=== PATIENT | male | born 1975 | race Caucasian/White ===

== ENCOUNTER → 2021-03-26 10:21 | Outpatient (BNVA) | payer OTHER, SELFPAY | PROVIDERS: Visit Provider Surgery | DX: Z20.822 Contact with and (suspected) exposure to COVID-19 (principal); K92.1 Melena | CPT/HCPCS: 87635 ==

== ENCOUNTER 2021-03-29 07:37 | Day surgery (SDC) | payer OTHER, SELFPAY ==
--- NOTE | 2021-03-29 08:20 | ANES.PREANE2 ---
Pre-Anesthetic Assessment Pre-Anesthetic Assessment: Height/Weight: Height 1.78 m Weight 99.79 kg Preop Diagnosis: Bleeding per rectum Proposed Procedure: Operation Date: 03/29/21 09:00 Proposed Procedures p EGD/Colon 84961 D50.9(Not Applicable) - Chris Mane MD s Colonoscopy 77901 K92.1(Not Applicable) - Chris Mane MD Was Beta Crissy taken within 24 hours: N/A Was Clonidine taken within 24 hours: N/A Social: Social History: Tobacco and No alcohol Exam: Pre-Anes Outpt Exam: alert, oriented x 3, clear to auscultation bilaterally and regular rate & rhythm Airway: Submandibular: WNL Cervical ROM: WNL Dentition: Full CV/HEM: CV/HEM: Anemia Metabolic: Metabolic: Hyperlipidemia Anesthetic Plan: ASA status: 2 Anesthesia: MAC Risk of > 500 ml blood loss (7ml/kg in children): No PFSH Anesthesia PFSH: Family History Denies family history of Diabetes CAD (coronary artery disease) Dementia Chronic kidney disease (CKD) Lung disease Cancer Stroke Social History Smoking and tobacco status: current some day smoker Alcohol intake: current Alcohol intake frequency: 3 or more drinks per day Lives independently: Yes Household members: spouse and children Marital status: Data Anesthesia Cardiac Studies: No Data to Display
[2021-03-29 08:30] VITALS: BP 149/89; PULSE 80; RESP 18; TEMP 36.6; O2SAT 99
[2021-03-29] MEDS: sodium chloride 0.9% 1,000 ML 30 ML IV (08:45)
--- NOTE | 2021-03-29 08:56 | W.PM.OPSUD ---
Surgery/Procedure H&P Update DATE OF PROCEDURE: March 29, 2021 DATE H&P PERFORMED: 03/22/21 H&P UPDATE INFORMATION: I have reviewed H&P completed within last 30 days, I have examined patient prior to procedure and No changes to prior documentation PREOP DIAGNOSIS: Bleeding per rectum PRIMARY INDICATION FOR PROCEDURE: The same PLANNED PROCEDURE: Operation Date: 03/29/21 09:00 Proposed Procedures p EGD/Colon 55397 D50.9(Not Applicable) - Chris Mane MD s Colonoscopy 97345 K92.1(Not Applicable) - Chris Mane MD
[2021-03-29 09:31] VITALS: BP 120/99; PULSE 85; RESP 18; TEMP 36.3; O2SAT 98
[2021-03-29 09:45] VITALS: BP 148/91; PULSE 86; RESP 16; O2SAT 97
--- NOTE | 2021-03-29 14:53 | ANE.PACU2 ---
Inpatient post-anesthesia follow up: Airway intact: Yes Vital signs: Temperature 97.3 F Pulse Rate 86 Respiratory Rate 16 Blood Pressure 148/91 Pulse Oximetry 97 Oxygen Delivery Me thod Room Air Oxygen Flow Rate 3 Fraction of Inspir ed Oxygen Hydration adequate: Yes Nausea and vomiting: No Pain level: 1 Mental status: Baseline
== END 2021-03-29 10:23 | disposition home or self-care (01) ==
PROVIDERS: Visit Provider Surgery
PROC: 0DJ08ZZ Inspection of Upper Intestinal Tract, Via Natural or Artificial Opening Endoscopic (ICD-10-PCS; CPT 43235; principal; 2021-03-29 09:00)
PROC: 0DJD8ZZ Inspection of Lower Intestinal Tract, Via Natural or Artificial Opening Endoscopic (ICD-10-PCS; CPT 45378; 2021-03-29 09:00)
DX: K62.5 Hemorrhage of anus and rectum (principal); D50.9 Iron deficiency anemia, unspecified; K31.7 Polyp of stomach and duodenum; K21.00 Gastro-esophageal reflux disease with esophagitis, without bleeding; E78.5 Hyperlipidemia, unspecified; F17.210 Nicotine dependence, cigarettes, uncomplicated
CPT/HCPCS: 43239; 45378; 88305; 96360; 96361; J2704; J7030